=== PATIENT | male | born 1950 | race Caucasian/White ===

== ENCOUNTER → 2018-04-14 | Outpatient (CLI) | payer OTHER ==
--- NOTE | ~2018-04-14 | 2DMMODE ---
[facility] [address] [place] [address] 2 D/M-MODE ECHOCARDIOGRAM Name: SELBYCARYN E Room #: REG [facility]#: [id number] Admission: 04/14/18 Attend Phys: Jonathan Stephen Discharge: Date of : 48 Date of Service: 04/14/18 0913 Report #: [id number] THIS REPORT FOR: //name// APPROVED REPORT Study performed: 04/14/2018 07:54:16 EXAM: Comprehensive 2D, Doppler, and color-flow Echocardiogram Patient Location: Echo lab Status: routine BSA: 2.24 HR: 74 bpm BP: 104/58 mmHg Rhythm: NSR Other Information Study Quality: Good Indications SOB, Chest tightness, hx: tobacco abuse 2D Dimensions RVDd: 41.75 mm LVEF(%): 63.85 (>50%) IVSd: 11.00 (7-11mm) LVOT Diam: 22.12 (18-24mm) LVDd: 45.87 mm PWd: 11.00 (7-11mm) Ascending Ao: 32.31 (22-36mm) LVDs: 29.99 (25-40mm) Aortic Root: 34.35 mm Nolan's LVEF: 63.85 % Volumes Left Atrial Volume (Systole) Single Plane 4CH: 38.14 mL Single Plane 2CH: 47.03 mL LA ESV Index: 21.00 mL/m2 Aortic Valve AoV Peak Richie.: 1.63 m/s AO Peak Gr.: 10.63 mmHg LVOT Max P.98 mmHg LVOT Max V: 1.12 m/s MARU Vmax: 2.63 cm2 Mitral Valve E/A Ratio: 1.2 MV Decel. Time: 199.[address] [facility] [email or web address] [address] 2 D/M-MODE ECHOCARDIOGRAM Name: CARYN SELBY Room #: [facility]#: [id number] Admission: 04/14/18 Attend Phys: Jonathan Stephen Discharge: Date of : 48 Date of Service: 04/14/18 0913 Report #: [id number] MV E Max Richie.: 0.89 m/s MV A Richie.: 0.73 m/s MV PHT: 57.92 ms IVRT: 96.89 ms Pulmonary Valve PV Peak Richie.: 1.21 m/s PV Peak Gr.: 5.81 mmHg Pulmonary Vein P Vein S: 0.65 m/s P Vein D: 0.52 m/s P Vein S/D Ratio: 1.25 Tricuspid Valve TR Peak Richie.: 2.59 m/s RAP Estimate: 5.00 mmHg TR Peak Gr.: 26.81 mmHg PA Pressure: 32.00 mmHg Left Ventricle The left ventricle is normal size. There is normal LV segmental wall motion. Borderline concentric left ventricular hypertrophy. The left ventricular systolic function is normal. LVEF is 55-60%. The left ventricular diastolic function is normal. Right Ventricle The right ventricle is normal size. The right ventricular systolic function is normal. Atria The left atrium size is normal. The right atrium size is normal. Aortic Valve The aortic valve is mildly calcified. No aortic regurgitation is present. There is no aortic valvular stenosis. Mitral Valve The mitral valve is normal in structure. There is no mitral valve regurgitation noted. No evidence of mitral valve stenosis. Tricuspid Valve The tricuspid valve is normal in structure. Mild tricuspid regurgitation. Estimated PAP of 30-35 mmHg. Pulmonic Valve The pulmonary valve is normal in structure. Trace pulmonic [facility] [address] [place] [address] 2 D/M-MODE ECHOCARDIOGRAM Name: CARYN SELBY [id number] Admission: 04/14/18 Attend Phys: Jonathan Stephen Discharge: Date of : 48 Date of Service: 04/14/18 0913 Report #: [id number] regurgitation. Great Vessels The aortic root is normal in size. The ascending aorta is normal in size. IVC is normal in size and collapses >50% with inspiration. Pericardium There is no pericardial effusion. <Conclusion> The left ventricular systolic function is normal. There is normal LV segmental wall motion. LVEF is 55-60%. Normal diastolic function The aortic valve is mildly calcified. No aortic regurgitation or stenosis The mitral valve is normal in structure. No mitral valve regurgitation Mild tricuspid regurgitation. Estimated pulmonary artery pressure of 30-35 mmHg. There is no pericardial effusion. <ELECTRONICALLY SIGNED> By: Dave Segal MD, [facility] 04/14/18912 2 2 Dave Segal MD, FACC /INF
== END ==
LOC: CV 07:24
DX: I07.1 Rheumatic tricuspid insufficiency (principal); I51.7 Cardiomegaly; E78.5 Hyperlipidemia, unspecified; R07.89 Other chest pain; Z87.891 Personal history of nicotine dependence

== ENCOUNTER → 2018-04-17 | Outpatient (CLI) | payer OTHER ==
[2018-04-17 09:59] LABS: CREATININE 0.8 mg/dL (0.7-1.3)
== END ==
LOC: CAT 08:58
PROVIDERS: Family Medicine
DX: S32.059A Unspecified fracture of fifth lumbar vertebra, initial encounter for closed fracture (principal); R22.2 Localized swelling, mass and lump, trunk; R63.4 Abnormal weight loss; X58.XXXA Exposure to other specified factors, initial encounter; Y93.89 Activity, other specified; Y92.89 Other specified places as the place of occurrence of the external cause; Y99.8 Other external cause status